=== PATIENT | female | born 1990 | race Caucasian/White ===

== ENCOUNTER 2017-04-27 21:45 | Emergency (ER) | payer MEDICAID ==
[2017-04-27] MEDS ORDERED: NAPROXEN 250 MG TABLET PO ONE (22:10)
--- NOTE | 2017-04-27 22:13 | Emergency Department Record ---
History of Present Illness - General Chief complaint: Rash Stated complaint: RASH ON LT THIGH Time Seen by Provider: 04/27/17 21:58 Source: Patient Mode of Arrival: Ambulatory Limitations: No limitations - History of Present Illness Initial comments: The patient is here due to a painful rash to her anterior L thigh for the last 6 days. The lesions are not multiplying and seem to be improving. She denies any rash anywhere else and has not had any fever, chills, AP, cough, or CHARLES. complaint: Rash Onset/Timin -: Week(s) Location: LLE Severity: Mild Consistency: Getting worse Improves with: None Worsens with: None Context: None Associated symptoms: Denies other symptoms Treatments Prior to Arrival: None - Related Data Home Medications Medication Instructions Recorded Confirmed Last Taken Multivitamin with Minerals [Hair, 1 each PO DAILY 04/27/17 04/27/17 Unknown Skin & Nails] Previous Rx's Medication Instructions Recorded Naproxen [Naprosyn] 500 mg PO BID #14 tablet. 04/27/17 Allergies Allergy/AdvReac Type Severity Reaction Status Date / Time No Known Allergies Allergy no drug Verified 04/27/17 21:53 allergies Travel Screening - Travel/Exposure Within Last 30 Days Have you traveled within the last 30 days?: No - Travel/Exposure Within Last Year Have you traveled outside the [place] in the last year?: No - Additonal Travel Details Have you been exposed to anyone with a communicable illness?: No - Travel Symptoms Symptom Screening: None Review of Systems Constitutional: Denies: Chills, Fever Eyes: Denies: Eye discharge ENT: Denies: Congestion Respiratory: Denies: Cough, Dyspnea Past Medical History - SOCIAL HISTORY Smoking Status: Never smoker Alcohol Use: None Drug Use: None - RESPIRATORY Hx Respiratory Disorders: No - CARDIOVASCULAR Hx Cardio Disorders: No - NEURO Hx Neuro Disorders: No - GI Hx GI Disorders: No - Hx Genitourinary Disorders: Yes Comment:: ovarian cyst x2 - ENDOCRINE Hx Endocrine Disorders: No - MUSCULOSKELETAL Hx Musculoskeletal Disorders: No - PSYCH Hx Psych Problems: No - HEMATOLOGY/ONCOLOGY Hx Hematology/Oncology Disorders: No Family Medical History Any Significant Family History?: Yes Hx Cancer: Father, Mother, Grandparents Physical Exam - General General Appearance: Alert, Cooperative, No acute distress - Head Head exam: Atraumatic, Normocephalic, Normal inspection - Eye Eye exam: Normal appearance, PERRL - Neck Neck exam: Normal inspection, Full ROM. negative: Tenderness - Respiratory Respiratory exam: Normal lung sounds bilaterally. negative: Respiratory distress - Cardiovascular Cardiovascular Exam: Regular rate, Normal rhythm, Normal heart sounds - GI/Abdominal GI/Abdominal exam: Soft, Normal bowel sounds. negative: Tenderness - Skin Skin exam: Rash (There is a mild vesicular rash in patches to the proximal L anterior thigh. The lesions seem to be in various stages of drying up and healing. It appears to be a mild case of Zoster.) Course Vital Signs 04/27/17 21:54 Temperature 97.1 F L Pulse Rate [ 80 Pulse Ox Probe] Respiratory 16 Rate Blood Pressure 115/76 [Left Arm] Pulse Ox 99 - Reevaluation(s) Reevaluation #1: I did discuss the case with the patient. Due to the fact the rash is quite mild and appears to be healing and has been present for almost a week I do not see any utility in giving and antiviral. She is to see her PCP if not better in 3 days. 04/27/17 22:18 Disposition Disposition: Discharge Clinical Impression: Shingles outbreak Qualifiers: Herpes zoster complications: without complications Qualified Code(s): B02.9 - Zoster without complications Disposition: Home, Self-Care Condition: (2) Stable Instructions: Shingles (ED) Additional Instructions: Please take the Naprosyn for pain and keep the rash clean and dry. Please see your PCP if not better in 3 days. Return to the ER for any worsening symptoms, fever, or pain. Prescriptions: Naproxen [Naprosyn] 500 mg PO BID #14 tablet.dr Forms: Patient Portal Access Time of Disposition: 22:18 Quality - Quality Measures Quality Measures: N/A - Blood Pressure Screening View Details: Yes Does Patient Have Any of the Following: No Blood Pressure Classification: Normal BP Reading Systolic Measurement: 115 Diastolic Measurement: 76 Screening for High Blood Pressure: < Normal BP, F/U Not Required > [G8783]
== END 2017-04-27 22:23 | disposition home or self-care (01) ==
LOC: ER 21:45
DX: B02.9 Zoster without complications (principal)
CPT/HCPCS: 99282

== ENCOUNTER 2017-07-26 19:37 | Emergency (ER) | payer MEDICAID ==
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
[2017-07-26] MEDS ORDERED: CYCLOBENZAPRINE 10MG TABLET PO ONE (21:34)
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
== END 2017-07-26 21:57 | disposition home or self-care (01) ==
LOC: ER 19:37
DX: S16.1XXA Strain of muscle, fascia and tendon at neck level, initial encounter (principal); S23.9XXA Sprain of unspecified parts of thorax, initial encounter; V43.52XA Car driver injured in collision with other type car in traffic accident, initial encounter; Y92.410 Unspecified street and highway as the place of occurrence of the external cause
CPT/HCPCS: 72072; 72125; 99283; 99284